=== PATIENT | female | born 1980 | race Caucasian/White ===

== ENCOUNTER 2018-08-08 07:24 | Inpatient (IN) | payer MEDICAID, OTHER ==
[2018-08-08] MEDS ORDERED: XYLOCAINE 2% INFILTRATI ONE (07:58)
[2018-08-08] MEDS ORDERED: BRETHINE SUB-Q PRN (07:58)
[2018-08-08] MEDS ORDERED: SUBLIMAZE IV PRN (07:58)
[2018-08-08] MEDS ORDERED: AMPICILLIN/NS 2 GM/100 ML 2 GM/100 ML BAG IV ONE (07:58)
[2018-08-08] MEDS ORDERED: LACTATED RINGERS 1,000 ML IV SCH (08:00)
[2018-08-08] MEDS ORDERED: PITOCin/NS 20 UNIT/1000ML DRIP 20 UNITS/1,000 ML BAG IV SCH (08:00)
[2018-08-08] MEDS ORDERED: LACTATED RINGERS 1,000 ML ONE (08:03)
--- NOTE | 2018-08-08 08:16 | History and Physical Report ---
History of Present Illness Date of examination: 08/08/18 Date of admission: 08/08/18 08:00 Chief complaint: Labor History of present illness: 38 year old female presents in active labor at term with advanced cervical dilation. Patient denies leaking of fluid or vaginal bleeding. Patient reports active movement. Patient received care at [facility] clinic. records are available. LMP 11/03/17. EDC 08/10/17. significant for the following: AMA, + GBS bacteriuria (treated ), LSIL, mildly elevated 1 hour sugar test with normal 3 hour OGTT. labs are as follows: B+, antibody screen negative, rubella immune, RPR nonreactive, hepatitis B surface antigen negative, HIV negative, GBS positive, GC negative, CT negative, 1 hour glucose screen 137 (normal 3 hour OGTT), MSAFP negative. 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 denies: smoking, alcohol abuse, prescription drug abuse, IV drug use - Obstetrical History Expected Date of Delivery: 08/10/18 Actual Gestation: 39 Week(s) 5 Day(s) : 3 Para: 2 Hx # Term Pregnancies: 3 Number of Pregnancies: 0 Spontaneous Abortions: 0 Induced : 0 Number of Living Children: 2 Medications and Allergies Allergies Allergy/AdvReac Type Severity Reaction Status Date / Time No Known Allergies Allergy Unverified 08/08/18 07:49 Active Meds: Active Medications Ephedrine Sulfate (Ephedrine Sulfate) 10 mg IV Q2M PRN PRN Reason: Hypotension Fentanyl (Sublimaze) 100 mcg IV Q2H PRN PRN Reason: Labor Pain Ampicillin Sodium (Polycillin/Ns 2 Gm/100 Ml) 2 gm in 100 mls @ 100 mls/hr IV ONCE ONE; Protocol Stop: 08/08/18 08:57 Lactated Ringer's (Lactated Ringers) 1,000 mls @ 125 mls/hr IV DIRECT MITCH Oxytocin/Sodium Chloride (Pitocin/Ns 20 Unit/1000ml Drip) 20 units in 1,000 mls @ 125 mls/hr IV DIRECT MITCH Ampicillin Sodium (Ampicillin/Ns 1 Gm/50 Ml) 1 gm in 50 mls @ 100 mls/hr IV Q4H MITCH; Protocol Terbutaline Sulfate (Brethine) 0.25 mg SUB-Q ONCE PRN PRN Reason: Hyperstimulation/Hypertonicity Review of Systems All systems: negative (contractions) - Vital Signs Vital signs: Vital Signs Pulse BP 85 125/77 08/08/18 07:41 08/08/18 07:41 Temp Pulse Resp BP Pulse Ox 98.1 F 85 16 125/77 08/08/18 07:46 08/08/18 07:41 08/08/18 07:46 08/08/18 07:41 - Physical Exam Abdomen: Positive: normal appearance, soft. Negative: distention, tenderness, guarding, rigidity Genitourinary (Female): Positive: normal external genitalia, normal perenium. Negative: perineal/vulvar lesions (no lesions seen on careful exam with bright light upon admission) Uterus: Positive: enlarged (size=dates). Negative: tender Anus/Rectum: Positive: normal perianal skin Extremities: Positive: normal. Negative: tenderness, edema - Obstetrical FHR: category 1 Uterine Contraction Monitor Mode: External Cervical Dilatation: 8 Cervical Effacement Percentage: 95 station: -1 Uterine Contraction Pattern: Regular Uterine Contraction Intensity: Moderate Results Result Diagrams: 08/08/18 08:16 All other labs normal. Assessment and Plan A: at 39 weeks, 5 days. Active labor with advanced cervical dilation. GBS positive. P: Admit. GBS prophylaxis. Epidural if desired.
[2018-08-08 08:57] LABS: Basophils % (Auto) 0.1 % (0.0-1.8); Eosinophils % (Auto) 0.1 % (0.0-4.3); Hematocrit 36.1 % (30.3-42.9); Hemoglobin 12.1 gm/dl (10.1-14.3); Lymphocytes # (Auto) 0.7 K/mm3 (1.2-5.4); Lymphocytes % (Auto) 6.2 % (13.4-35.0); Mean Corpuscular HGB Conc 33 % (30-34); Mean Corpuscular Volume 91 fl (79-97); Monocytes # (Auto) 0.6 K/mm3 (0.0-0.8); Monocytes % (Auto) 5.1 % (0.0-7.3); Platelet Count 214 K/mm3 (140-440); Red Blood Count 3.98 M/mm3 (3.65-5.03); Red Cell Distribution Width 14.3 % (13.2-15.2)
[2018-08-08] MEDS ORDERED: LIDOCAINE 1.5%/EPI 1:200,000 INFILTRATI ONE (09:56)
[2018-08-08] MEDS ORDERED: SENSORCAINE/DEXTR 0.75-8.25% INFILTRATI ONE (09:56)
[2018-08-08] MEDS ORDERED: MARCAINE 0.25% INFILTRATI ONE (09:56)
[2018-08-08] MEDS ORDERED: NARCAN 2 MG/2 ML IV PRN (10:19)
--- NOTE | 2018-08-08 10:20 | Anesthesia Consultation ---
Anesthesia Consult and Med Hx - Airway Anesthetic Teeth Evaluation: Good ROM Head & Neck: Adequate Mental/Hyoid Distance: Adequate Mallampati Class: Class I Intubation Access Assessment: Good - Pulmonary Exam CTA: Yes - Cardiac Exam Cardiac Exam: RRR - Pre-Operative Health Status ASA Pre-Surgery Classification: ASA2 Proposed Anesthetic Plan: Epidural - Pulmonary Hx Smoking: No Hx Asthma: No COPD: No Hx Pneumonia: No - Cardiovascular System Hx Hypertension: No - Central Nervous System Hx Seizures: No Hx Psychiatric Problems: No - Endocrine Hx Renal Disease: No Hx End Stage Renal Disease: No Hx Hypothyroidism: No Hx Hyperthyroidism: No - Hematic Hx Anemia: No Hx Sickle Cell Disease: No - Other Systems Hx Alcohol Use: No
[2018-08-08] MEDS ORDERED: fentaNYL-BUPIV 2 MCG/ML-0.125% 200 MCG/100 ML BAG EPIDURAL ONE (10:21)
--- NOTE | 2018-08-08 10:21 | Anesthesia Day of Surgery ---
Anesthesia Day of Surgery - Day of Surgery Patient Examined: Yes Patient H&P Reviewed: Yes Patient is NPO: Yes Beta Blockers: No Cardiac Clearance: No Pulmonary Clearance: No Thomas's Test: N/A
[2018-08-08] MEDS ORDERED: fentaNYL-BUPIV 2 MCG/ML-0.125% 200 MCG/100 ML BAG EPIDURAL SCH (11:00)
[2018-08-08] MEDS ORDERED: AMPICILLIN/NS 1 GM/50 ML 1 GM/50 ML BAG IV SCH (12:00)
--- NOTE | 2018-08-08 13:02 | Event Note ---
Date: 08/08/18 SVE 9/0.
[2018-08-08] MEDS ORDERED: MINERAL OIL ONE (16:29)
[2018-08-08] MEDS ORDERED: LANSINOH TP PRN (17:18)
[2018-08-08] MEDS ORDERED: BENADRYL PO PRN (17:18)
[2018-08-08] MEDS ORDERED: DULCOLAX PR PRN (17:18)
[2018-08-08] MEDS ORDERED: NORCO 5/325 PO PRN (17:18)
[2018-08-08] MEDS ORDERED: TUCKS PAD TP PRN (17:18)
[2018-08-08] MEDS ORDERED: SODIUM CHLORIDE FLUSH SYRINGE 10 ML IV SCH (18:00)
[2018-08-08] MEDS ORDERED: MILK OF MAGNESIA PO PRN (18:18)
[2018-08-08] MEDS ORDERED: COLACE PO SCH (22:00)
[2018-08-09] MEDS: IBUPROFEN PO SCH ×4 (00:06→17:58)
--- NOTE | 2018-08-09 00:10 | Procedure Note ---
OB Delivery Note - Delivery Date of Delivery: 08/08/18 Surgeon: ANGEL LUIS VIEYRA - Vaginal Delivery presentation: vertex Delivery position: OA Delivery induction: none Delivery monitor: none Route of delivery: Delivery placenta: spontaneous Delivery cord: 3 umbilical vessels Episiotomy: none Delivery laceration: none Anesthesia: epidural Delivery comments: SVE liveborn female weighing 3581 grams at 16:37 with apgars of 8/9. Spontaneous delivery of intact placenta and membranes at 16:45.
[2018-08-09 05:26] LABS: Hematocrit 29.7 % (30.3-42.9); Hemoglobin 9.8 gm/dl (10.1-14.3)
--- NOTE | 2018-08-09 11:30 | Progress Note ---
Assessment and Plan day 1 S/P . Anemia. P: Supplement with iron. Anticipate discharge tomorrow. Subjective - Subjective Date of service: 08/09/18 Principal diagnosis: day 1 S/P Patient reports: appetite normal, voiding normally, pain well controlled, flatus, ambulating normally, no dizzy ambulation, no nauseated [place]: doing well Objective - Vital Signs Latest vital signs: Vital Signs Temp Pulse Resp BP BP Pulse Ox 08/09/18 07:31 98.2 F 80 16 96/61 95 08/09/18 05:59 18 08/09/18 04:00 98.6 F 70 16 114/62 08/09/18 00:00 98.4 F 62 18 112/75 08/08/18 19:15 98.9 F 89 124/72 08/08/18 18:27 112 H 114/56 08/08/18 18:11 100 H 121/58 08/08/18 17:56 107 H 116/58 08/08/18 17:42 109 H 116/72 08/08/18 17:12 112 H 109/60 08/08/18 16:56 107 H 118/61 08/08/18 16:53 109 H 114/59 08/08/18 16:41 109 H 113/61 08/08/18 16:27 112 H 112/63 97 08/08/18 16:14 120 H 82 L 08/08/18 16:11 107 H 138/71 08/08/18 16:09 104 H 99 08/08/18 16:04 91 H 97 08/08/18 15:59 96 H 98 08/08/18 15:56 100 H 121/74 08/08/18 15:54 105 H 96 08/08/18 15:49 102 H 97 08/08/18 15:44 104 H 97 08/08/18 15:41 103 H 114/69 08/08/18 15:39 95 H 96 08/08/18 15:34 95 H 99 08/08/18 15:29 101 H 99 08/08/18 15:27 100 H 124/72 08/08/18 15:24 102 H 97 08/08/18 15:19 96 H 98 08/08/18 15:14 99 H 98 08/08/18 15:11 101 H 115/73 08/08/18 15:09 96 H 96 08/08/18 15:04 103 H 97 08/08/18 14:59 107 H 97 08/08/18 14:56 101 H 118/72 08/08/18 14:54 106 H 98 08/08/18 14:49 100 H 98 08/08/18 14:44 86 97 08/08/18 14:42 97 H 112/65 08/08/18 14:39 99 H 96 08/08/18 14:34 103 H 93 08/08/18 14:31 96 H 94 08/08/18 14:29 99 H 93 08/08/18 14:27 96 H 118/71 08/08/18 14:25 95 H 94 08/08/18 14:23 95 H 94 08/08/18 14:20 96 H 76 L 08/08/18 14:18 98 H 97 08/08/18 14:13 94 H 99 08/08/18 14:11 92 H 110/59 08/08/18 14:08 89 98 08/08/18 14:05 71 L 08/08/18 14:03 95 H 97 08/08/18 13:58 98 H 96 08/08/18 13:56 95 H 110/58 08/08/18 13:53 96 H 95 08/08/18 13:51 94 H 94 08/08/18 13:48 96 H 94 08/08/18 13:46 98 H 94 08/08/18 13:43 98 H 95 08/08/18 13:41 92 H 104/52 08/08/18 13:39 96 H 94 08/08/18 13:38 92 H 95 08/08/18 13:33 98 H 96 08/08/18 13:28 95 H 96 08/08/18 13:26 89 85/46 94 08/08/18 13:23 90 95 08/08/18 13:18 97 H 96 08/08/18 13:13 103 H 96 08/08/18 13:11 94 H 97/55 94 08/08/18 13:08 91 H 97 08/08/18 13:03 101 H 97 08/08/18 12:58 106 H 97 08/08/18 12:56 102 H 115/65 08/08/18 12:53 100 H 98 08/08/18 12:48 101 H 98 08/08/18 12:43 101 H 97 08/08/18 12:41 100 H 119/76 08/08/18 12:38 102 H 98 08/08/18 12:33 89 99 08/08/18 12:28 92 H 99 08/08/18 12:26 85 115/63 08/08/18 12:23 98 H 95 08/08/18 12:18 96 H 98 08/08/18 12:13 92 H 99 08/08/18 12:12 100 H 138/63 08/08/18 12:08 96 H 99 08/08/18 12:01 97 H 98 08/08/18 11:57 96 H 124/61 08/08/18 11:56 102 H 98 08/08/18 11:51 94 H 98 08/08/18 11:47 97 H 93 08/08/18 11:46 100 H 97 08/08/18 11:42 98 H 120/69 08/08/18 11:41 101 H 97 08/08/18 11:36 103 H 95 08/08/18 11:35 106 H 90 08/08/18 11:31 102 H 100 Intake and Output 08/08/18 08/09/18 08/09/18 23:59 07:59 15:59 Intake Total 300 240 Output Total 2000 Balance -1700 240 Intake: Oral 240 Intake, Free Water 300 Output: Urine 2000 Void 2000 Other: Total, Intake Amount 240 Total, Output Amount 600 # Voids Void 1 1 Estimated Blood Loss 200 - Exam Cardiovascular: Present: Regular rate, Normal S1, Normal S2, No murmurs Lungs: Present: Clear to auscultation Abdomen: Present: normal appearance, soft, normal bowel sounds. Absent: distention, tenderness, guarding Uterus: Present: normal, firm, fundal height below umbilicus. Absent: bogginess, tenderness Extremities: Present: normal. Absent: tenderness, edema - Labs Labs: Abnormal lab results 08/09/18 Range/Units 04:42 Hgb 9.8 L (10.1-14.3) gm/dl Hct 29.7 L D (30.3-42.9) %
[2018-08-09] MEDS ORDERED: FEOSOL PO SCH (12:00)
--- NOTE | 2018-08-09 19:47 | Event Note ---
Date: 08/09/18 Patient requests to be discharged tondaniel. She states she has other children at home she needs to take care of. She has been doing well.
--- NOTE | 2018-08-09 20:17 | Discharge Summary ---
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 Hospitalization Reason for admission: active labor Delivery: Episiotomy: none Laceration: none Other procedures: none complications: none Discharge diagnosis: IUP at term delivered [place] baby: female Pertinent studies: Labs Hospital course: Normal hospital course Condition at discharge: Good Disposition: DC-01 TO HOME OR SELFCARE - Discharge Diagnoses (1) Term delivered Status: Acute Plan - Provider Discharge Summary Activity: routine, no sex for 6 weeks, no heavy lifting 4 weeks, no strenuous exercise Diet: routine Instructions: routine Additional instructions: Call your doctor immediately for: * Fever > 100.5 * Heavy vaginal bleeding ( >1 pad per hour) * Severe persistent headache * Shortness of breath * Reddened, hot, painful area to leg or breast - Follow up plan Follow up: PRIMARY CAREMD [Primary Care Provider] - 6 Weeks
[2018-08-09 22:25] VITALS: BP 107/59
== END 2018-08-09 22:45 | disposition home or self-care (01) | DRG 807 ==
LOC: TRG 07:24 → LD 08:00 → OB 19:10
PROVIDERS: ADMIT Obstetrics & Gynecology; ATTEND Obstetrics & Gynecology
PROC: 10E0XZZ Delivery of Products of Conception, External Approach (ICD-10-PCS; principal; 2018-08-08)
PROC: 3E0R3BZ Introduction of Anesthetic Agent into Spinal Canal, Percutaneous Approach (ICD-10-PCS; 2018-08-08)
PROC: 00HU33Z Insertion of Infusion Device into Spinal Canal, Percutaneous Approach (ICD-10-PCS; 2018-08-08)
DX: O99.824 Streptococcus B carrier state complicating childbirth (principal); Z37.0 Single live birth; Z3A.39 39 weeks gestation of pregnancy; O99.02 Anemia complicating childbirth; D64.9 Anemia, unspecified
CPT/HCPCS: 36415; 85014; 85018; 85025; 86592; 86850; 86900; 86901; G0378; J0290; J2590; J3010; J7120